=== PATIENT | female | born 1975 | race Caucasian/White ===

== ENCOUNTER 2018-07-10 14:47 | Emergency (ER) | payer SELFPAY ==
[~2018-07-10] VITALS: Ht 170.2 cm; Wt 106.8 kg
[2018-07-10 14:51] VITALS: Ht 170.2 cm; Wt 106.8 kg
[2018-07-10] MEDS ORDERED: VENTOLIN HFA18 GM INH (15:27)
[2018-07-10] MEDS ORDERED: VIBRAMYCIN 100100 MG PO (15:27)
[2018-07-10 16:18] VITALS: BP 146/83
== END 2018-07-10 16:19 | disposition home or self-care (01) ==
LOC: D.ER 14:47
DX: J06.9 Acute upper respiratory infection, unspecified (principal); J20.9 Acute bronchitis, unspecified; R09.89 Other specified symptoms and signs involving the circulatory and respiratory systems; M79.18 Myalgia, other site; F17.200 Nicotine dependence, unspecified, uncomplicated